=== PATIENT | female | born 1970 | race Native Hawaiian/Other Pacific Islander ===

== ENCOUNTER 2017-03-07 05:35 | Day surgery (SDC) | payer MEDICARE, MEDICAID ==
[~2017-03-07] VITALS: Ht 172.7 cm; Wt 59.9 kg
[2017-03-07] MEDS ORDERED: fentaNYL CITRATE 250 MCG/5 ML AMP IV ONE (07:30)
[2017-03-07] MEDS ORDERED: BUPIVACAINE /EPINEPHRINE/PF 0.25% 30 ML VIAL INJ ONE (07:30)
[2017-03-07] MEDS ORDERED: MIDAZOLAM HCL 5 MG/5 ML VIAL IVP ONE (07:30)
[2017-03-07] MEDS ORDERED: CEFAZOLIN 1 GM IVPB PREMIX 50 ML IV ONE (07:30)
[2017-03-07] MEDS ORDERED: PROPOFOL 200MG/ 20ML VIAL (DIPRIVAN) IV ONE (07:30)
[2017-03-07] MEDS ORDERED: ONDANSETRON HCL 4 MG/2 ML VIAL IVP ONE ×2 (07:30)
[2017-03-07] MEDS ORDERED: ROCURONIUM BROMIDE 10 MG/ML (ZEMURON) IV ONE (07:30)
[2017-03-07] MEDS ORDERED: SEVOFLURANE 15 MIN GAS INH ONE (07:30)
[2017-03-07] MEDS ORDERED: fentaNYL CITRATE/PF 100 MCG/2 ML AMP IVP ONE (07:30)
[2017-03-07] MEDS ORDERED: KETOROLAC TROMETHAMINE 30 MG VIAL IVP ONE (07:30)
[2017-03-07] MEDS ORDERED: LR 1,000 ML IV.SOLN IV ONE (07:30)
[2017-03-07] MEDS ORDERED: NS IRRIG SOLN 1000 ML IR ONE (07:30)
[2017-03-07] MEDS ORDERED: LR 1,000 ML IV SCH (08:41)
[2017-03-07] MEDS ORDERED: HYDROmorphone 2 MG/ML VIAL IVP PRN (08:45)
[2017-03-07] MEDS ORDERED: HYDROmorphone 1 MG INJ. 1 MG/ML AMPUL IVP PRN ×2 (08:45)
[2017-03-07] MEDS ORDERED: METOCLOPRAMIDE HCL 10 MG/2 ML VIAL IVP PRN (08:45)
[2017-03-07] MEDS ORDERED: ONDANSETRON HCL 4 MG/2 ML VIAL IVP PRN (10:00)
[2017-03-07] MEDS ORDERED: OXYCODONE/ACETAMINOPHEN 5-325 TABLET PO PRN (10:00)
[2017-03-07] MEDS ORDERED: PROMETHAZINE HCL 25 MG/ML AMP IM PRN (10:00)
[2017-03-07] MEDS ORDERED: HYDROmorphone 2 MG TAB PO PRN (10:00)
[2017-03-07] MEDS ORDERED: ONDANSETRON HCL 4 MG/2 ML VIAL ONE (11:38)
[2017-03-07 11:46] VITALS: BP_SYST 122
[2017-03-07] MEDS ORDERED: OXYCODONE/ACETAMINOPHEN 5-325 TABLET ONE (11:59)
== END 2017-03-07 13:00 | disposition home or self-care (01) ==
LOC: SDS 05:35 → SMU 05:35 → SDS 13:00
PROVIDERS: ATTEND Obstetrics & Gynecology
DX: D06.7 Carcinoma in situ of other parts of cervix (principal); N85.4 Malposition of uterus; N72 Inflammatory disease of cervix uteri; D25.1 Intramural leiomyoma of uterus; E03.9 Hypothyroidism, unspecified; F32.9 Major depressive disorder, single episode, unspecified; Z98.890 Other specified postprocedural states
CPT/HCPCS: 36415; 58552; 86886; 86900; 86901; 88307; J0690; J1885; J2250; J2405; J2704; J3010 ×2; J3490; J7120; E0190